=== PATIENT | male | born 1925 | race Caucasian/White ===

== ENCOUNTER → 2017-01-25 | Outpatient (CLI) | payer MEDICARE ==
[~2017-01-25] MED LIST: 'TENORMIN50 MG PO; AMLODIPINE BESYL5 MG PO; AMLODIPINE5 MG PO; ASPI-COR81 M1 PO; ATENOLOL25 MG PO; ATIVAN1 MG PO; CIPRO500 MG PO; Catapres-Tts 10.1 MG PO; FE-TABS325 MG PO; FEROSUL325 MG PO; FLOMAX0.4 MG PO; HYDRALAZINE HCL25 MG PO; KEFLEX500 MG PO; LASIX40 MG PO; METAMUCIL SMOOT1 PDR PO; OCUVITE1 TA1 PO; PERCOCET 325 MG1 TA7 PO; PRILOSEC20 MG PO; SEPTRA DS 800 M1 TAB PO; SIMVASTATIN10 MG PO; THERAPEUTIC VIT1 CAP PO; VITAMIN D-32000 UNIT PO; ZYLOPRIM100 MG PO
[2017-01-25 11:57] LABS: BILIRUBIN NEGATIVE (NEGATIVE); BLOOD NEGATIVE (NEGATIVE); CLARITY SL CLOUDY (CLEAR); COLOR YELLOW (YELLOW); GLUCOSE NEGATIVE (NEGATIVE); KETONE NEGATIVE (NEGATIVE); LEUKO ESTERASE NEGATIVE (NEGATIVE); NITRITE NEGATIVE (NEGATIVE); PROTEIN NEGATIVE (NEGATIVE); UROBILINOGEN 0.2 E.U./dl (0.2-1.0)
[2017-01-25 12:04] LABS: BASO % 0.2 % (0.0-1.0); EOS # 0.2 10*3/uL (0.0-0.4); EOS % 1.7 % (1.0-4.0); LYMPH # 2.2 10*3/uL (1.3-4.4); LYMPH % 24.5 % (27.0-41.0); MEAN CORPUSCULAR HGB 30.5 pg (27.0-31.0); MEAN CORPUSCULAR HGB CONC 31.4 g/dl (33.0-37.0); MEAN PLATELET VOLUME 11.2 fl (9.6-12.3); MONO # 0.8 10*3/uL (0.1-1.0); MONO % 8.5 % (3.0-9.0); NEUT # 5.7 10*3/uL (2.3-7.9); NEUT % 64.6 % (47.0-73.0); PLATELET COUNT AUTOMATED 155 10*3/uL (130-400); RED BLOOD COUNT 3.61 10*6/uL (4.50-5.90); RED CELL DISTRI WIDTH 14.2 % (0-14.5); WHITE BLOOD COUNT 8.8 10*3/uL (4.8-10.8)
[2017-01-25 12:28] LABS: ALBUMIN 3.3 gm/dl (3.1-4.5); MAGNESIUM 2.3 mg/dL (1.5-2.1); PHOSPHOROUS 2.9 mg/dL (2.5-4.9); POTASSIUM 4.6 mmol/L (3.5-5.1)
[2017-01-25 13:17] LABS: PTH INTACT 95.6 pg/mL (14.0-72.0); VITAMIN D, 25-HYDROXY 40.9 ng/mL (30-100)
== END | disposition home or self-care (01) ==
LOC: LAB 11:16
PROVIDERS: Internal Medicine Nephrology
DX: N18.4 Chronic kidney disease, stage 4 (severe) (principal); N25.81 Secondary hyperparathyroidism of renal origin; D64.9 Anemia, unspecified